=== PATIENT | male | born 1940 | race Caucasian/White ===

== ENCOUNTER 2017-06-04 15:09 | Emergency (ER) | payer MEDICARE ==
[2017-06-04 15:46] LABS: #Basophils 0.1 thou/uL (0.0-0.2); #Eosinphils 0.1 thou/uL (0.0-0.7); #Lymphocytes 1.2 thou/uL (1.20-3.40); #Monocytes 0.3 thou/uL (0.11-0.59); #Neutrophils 7.7 thou/uL (1.40-6.50); %Eosinophils 0.9 % (0.0-10.0); %Lymphocytes 12.6 % (21.0-51.0); %Monocytes 3.3 % (0.0-10.0); Hematocrit 46.2 % (42.0-52.0); Mean Platelet Volume 7.2 fL (7.4-10.4); Red Blood Cell (RBC) Count 4.74 mill/uL (4.70-6.10); White Blood Cell (WBC) Count 9.4 thou/uL (4.8-10.8)
[2017-06-04 16:08] LABS: ALT (SGPT) 38 U/L (8-55); AST (SGOT) 28 U/L (5-34); Alkaline Phosphatase 72 U/L (40-150); Anion Gap 17 mmol/L (10-20); BUN (Urea Nitrogen) 23 mg/dL (8.4-25.7); Bilirubin, Total 0.8 mg/dL (0.2-1.2); Calc. Creatinine Clearance 0 mL/min (70-130); Calcium 10.2 mg/dL (7.8-10.44); Carbon Dioxide 25 mmol/L (23-31); Chloride 99 mmol/L (98-107); Estimated GFR-MDRD 62; Globulin 3.5 g/dL (2.4-3.5)
[2017-06-04 16:13] LABS: Troponin I Less than 0.010 ng/mL (< 0.028)
== END 2017-06-04 17:33 | disposition home or self-care (01) ==
LOC: ERS 15:09
DX: R11.0 Nausea (principal); R42 Dizziness and giddiness; R10.30 Lower abdominal pain, unspecified; T40.2X5A Adverse effect of other opioids, initial encounter; T39.1X5A Adverse effect of 4-Aminophenol derivatives, initial encounter; M54.5 Low back pain; I49.9 Cardiac arrhythmia, unspecified; I48.91 Unspecified atrial fibrillation; K21.9 Gastro-esophageal reflux disease without esophagitis; E78.5 Hyperlipidemia, unspecified; I10 Essential (primary) hypertension
CPT/HCPCS: 80053; 82553; 83690; 84484; 85025; 93005; 99285; G0103

== ENCOUNTER 2021-08-17 13:09 | Outpatient (CLI) | payer MEDICARE ==
[2021-08-17 15:01] LABS: #Basophils 0.1 10x3/uL (0.0-0.2); #Eosinphils 0.4 10x3/uL (0.0-0.5); #Monocytes 0.6 10x3/uL (0.0-1.1); #Neutrophils 4.7 10x3/uL (1.5-8.4); %Basophils 0.7 % (0.0-2.0); %Eosinophils 5.1 % (0.0-6.0); %Lymphocytes 23.4 % (18.0-47.0); %Monocytes 8.3 % (0.0-10.0); %Neutrophils 62.2 % (40.0-75.0); Hemoglobin 13.1 g/dL (13.5-17.5); Mean Corpuscular Hemoglobin 30.4 pg (27.0-33.0); Mean Corpuscular Volume 98.1 fl (81.2-95.1); Mean Platelet Volume 10.6 fl (7.4-10.4); Platelet Count 188 10x3/uL (150-450); RBC Distribution Width 14.4 % (11.5-14.5); Red Blood Cell (RBC) Count 4.31 10x6/uL (4.32-5.72); White Blood Cell (WBC) Count 7.5 10x3/uL (3.5-10.5)
[2021-08-17 15:28] LABS: ALT (SGPT) 26 U/L (8-55); AST (SGOT) 21 U/L (5-34); Albumin 4.3 g/dL (3.4-4.8); Alkaline Phosphatase 79 U/L (40-110); Anion Gap 14 mmol/L (10-20); BUN (Urea Nitrogen) 22 mg/dL (8.4-25.7); Bilirubin, Total 0.8 mg/dL (0.2-1.2); Calc. Creatinine Clearance 0 mL/min (70-130); Calcium 9.7 mg/dL (7.8-10.44); Carbon Dioxide 31 mmol/L (23-31); Chloride 102 mmol/L (98-107); Globulin 2.9 g/dL (2.4-3.5); Glucose 96 mg/dL (83-110); Potassium 4.8 mmol/L (3.5-5.1); Protein, Total 7.2 g/dL (5.8-8.1); Sodium 142 mmol/L (136-145)
[2021-08-18 08:57] LABS: SARS-CoV-2 PCR by NAA Not Detected (NotDetected)
== END 2021-08-17 13:10 | disposition home or self-care (01) ==
LOC: LABBT 13:09
PROVIDERS: ATTEND Internal Medicine Cardiovascular Disease
DX: Z01.818 Encounter for other preprocedural examination (principal); E78.00 Pure hypercholesterolemia, unspecified; I25.10 Atherosclerotic heart disease of native coronary artery without angina pectoris; I42.9 Cardiomyopathy, unspecified; Z20.822 Contact with and (suspected) exposure to COVID-19
CPT/HCPCS: 80053; 85025; 93005; U0003; U0005; 93010

== ENCOUNTER 2021-08-22 05:47 | Day surgery (SDC) | payer MEDICARE ==
[2021-08-09 14:30] VITALS: BMI 34.0
[2021-08-22] MEDS ORDERED: Heparin 10,000 UNITS/ 10 ML VIAL ONE (06:25)
[2021-08-22] MEDS ORDERED: Fentanyl 100 MCG/2 ML VIAL ONE (07:17)
[2021-08-22] MEDS ORDERED: Midazolam HCl 2 mg/2 ml Vial ONE (07:17)
[2021-08-22] MEDS ORDERED: Lidocaine 1% (PF) 30 ML VIAL ONE (07:27)
[2021-08-22] MEDS ORDERED: Protamine Sulfate 50 MG/5 ML VIAL ONE (08:11)
[2021-08-22] MEDS ORDERED: Iopamidol 370 76% 100 ML VIAL ONE (09:42)
[2021-08-22] MEDS ORDERED: Iopamidol 370 76% 50 ML VIAL FS ONE (09:42)
== END 2021-08-22 14:40 | disposition home or self-care (01) ==
LOC: SDC 05:47
PROVIDERS: ATTEND Internal Medicine Cardiovascular Disease
PROC: 4A023N7 Measurement of Cardiac Sampling and Pressure, Left Heart, Percutaneous Approach (ICD-10-PCS; principal; 2021-08-22)
PROC: B2111ZZ Fluoroscopy of Multiple Coronary Arteries using Low Osmolar Contrast (ICD-10-PCS; 2021-08-22)
DX: I08.0 Rheumatic disorders of both mitral and aortic valves (principal); I25.10 Atherosclerotic heart disease of native coronary artery without angina pectoris; E78.00 Pure hypercholesterolemia, unspecified; I10 Essential (primary) hypertension; I48.0 Paroxysmal atrial fibrillation; I42.9 Cardiomyopathy, unspecified; I47.2 Ventricular tachycardia; G47.33 Obstructive sleep apnea (adult) (pediatric); E66.09 Other obesity due to excess calories; Z68.34 Body mass index [BMI] 34.0-34.9, adult; Z79.01 Long term (current) use of anticoagulants; Z79.82 Long term (current) use of aspirin; Z79.899 Other long term (current) drug therapy; Z95.810 Presence of automatic (implantable) cardiac defibrillator
CPT/HCPCS: 85347; 93460; 93567; 99152; 99153; J1644; J2001; J2250; J2720; J3010; Q9967